=== PATIENT | female | born 1980 | race Caucasian/White ===

== ENCOUNTER → 2021-07-26 | Outpatient (CLI) | payer BC ==
[2021-07-26 10:41] LABS: HEMOGLOBIN 13.6 gm/dl (12.3-15.3); RED BLOOD COUNT 4.36 M/UL (4.00-5.10); WHITE BLOOD COUNT 7.9 K/UL (4.5-11.0)
[2021-07-26 10:57] LABS: BUN/CREATININE RATIO 14 (0-10)
== END ==
LOC: LAB 09:34
PROVIDERS: Internal Medicine
DX: M94.1 Relapsing polychondritis (principal); R53.83 Other fatigue; M25.50 Pain in unspecified joint; D89.89 Other specified disorders involving the immune mechanism, not elsewhere classified; R74.8 Abnormal levels of other serum enzymes; Z79.899 Other long term (current) drug therapy
CPT/HCPCS: 36415; 80053; 82728; 85025; 85652; 86140